=== PATIENT | male | born 1955 | race Caucasian/White ===

== ENCOUNTER → 2016-05-14 | Outpatient (CLI) | payer OTHER ==
[~2016-05-14] MED LIST: AMLO-114 PO; AMLO5TAB2 PO; ASPCH81X PO; ATEN-173 PO; CYAN500T13 PO; HYDR-5688 PO; HYDR12.55 PO; HYDR50TA3 PO; HYDROCHLOROTHIAZIDE PO; LISI-729 PO; LISI40TA PO; TRAM-10 PO
== END | disposition home or self-care (01) ==
LOC: C.CPL 10:28
PROVIDERS: ATTEND Orthopaedic Surgery
DX: M25.561 Pain in right knee (principal); R00.1 Bradycardia, unspecified

== ENCOUNTER 2016-05-19 10:22 | Day surgery (SDC) | payer OTHER ==
--- NOTE | 2016-05-18 16:36 | HISTORY & PHYSICAL EXAMINATION ---
DATE OF ADMISSION: 05/19/2016 HISTORY OF PRESENT ILLNESS: The patient is 6 foot 4, 250 pounds, BMI of 30.43. A 60-year-old white male with complaints of ongoing pain attributed to his right knee, presents with a torn medial meniscus and subchondral stress reaction for knee arthroscopy, possible partial medial meniscectomy, possible subchondroplasty pending findings at time of surgery. The patient has failed attempts at conservative management including previous corticosteroid injections, viscosupplementation, activity modification, and rest and presents today for arthroscopic evaluation. PAST MEDICAL HISTORY: Significant for hypertension. ALLERGIES: PHENERGAN. PAST SURGICAL HISTORY: Significant for cholecystectomy in 2010, left knee surgery in 1980, right shoulder tumor 2000, bone marrow donation 1996 and 2004. FAMILY HISTORY: Unremarkable and noncontributory. SOCIAL HISTORY: The patient relates no smoking, drinking alcohol approximately 6 drinks per week. No recreational drug use noted. PAST MEDICAL HISTORY: Otherwise unremarkable. See history of present illness for pertinent positives. PHYSICAL EXAMINATION: GENERAL: A very pleasant 60-year-old white male with the above findings noted. HEAD, EYES, EARS, NOSE, AND THROAT: Otherwise unremarkable, atraumatic, normocephalic. HEART: Regular at 72 beats per minute. No murmur is noted. LUNGS: Clear. No without rales, rhonchi, or wheezes noted. ABDOMEN: Soft, nontender, nondistended. Bowel sounds are present in all 4 quadrants. RECTAL: No rectal examination performed. MUSCULOSKELETAL EXAMINATION: Consistent with that of right knee pain, medial meniscal findings consistent with positive Ness and circumduction findings, medial joint line pain, tenderness with a torn medial meniscus and stress reaction. MRI is also consistent with the above findings with the subchondral area of bone marrow edema. PLAN: For arthroscopy, arthroscopic partial medial meniscectomy, possible subchondral subchondroplasty utilizing fluoroscopic guidance pending findings at time of surgery.
[~2016-05-19] VITALS: Ht 193 cm; Wt 113.6 kg
--- NOTE | 2016-05-19 10:14 | History & Physical Bridge Note ---
H&P Re-Evaluation Bridge Note: I have examined the patient, reviewed the History & Physical and in the interval since the performance of the History & Physical I have noted the following changes of clinical significance: No changes noted
[~2016-05-19 10:22] MED LIST changes: -AMLO5TAB2 PO; -ASPCH81X PO; +CEFAZOLIN 1000MG/55 ML D5W IV SCH; +CEFAZOLIN 2000 MG/60 ML D5W IV SCH; -HYDR-5688 PO; -HYDR12.55 PO; -HYDROCHLOROTHIAZIDE PO; +LACTATED RINGER'S 1000ML 1,000 ML IV SCH; -LISI-729 PO
[2016-05-19] MEDS ORDERED: PROPOFOL IV EMULSION 10 MG/ML 20 ML VIAL IV ONE (10:43)
[2016-05-19] MEDS ORDERED: ONDANSETRON INJ 2 MG/ML 2 ML VIAL ONE (10:43)
[2016-05-19] MEDS ORDERED: MIDAZOLAM HCL 1 MG/ML 2ML VIAL ONE (10:43)
[2016-05-19] MEDS ORDERED: FENTANYL CITRATE INJ 50 MCG/1 ML 2 ML VIAL ONE ×2 (10:43→12:50)
[2016-05-19] MEDS ORDERED: LIDOCAINE HCL 2% 2 ML VIAL (20MG/ML) ONE (10:43)
[2016-05-19 10:49] VITALS: BP 155/98; PULSE 58; TEMP 37; O2SAT 95; Ht 193 cm; Wt 113.6 kg
[2016-05-19] MEDS ORDERED: MoRPHine SULFATE 10 MG/ML CARP/VIAL IV PRN (11:15)
[2016-05-19] MEDS ORDERED: EpHEDrine SULFATE INJ 50 MG/ML AMP IV PRN (11:15)
[2016-05-19] MEDS ORDERED: ATROPINE SULFATE 0.1 MG/ML 5ML SYR IV PRN (11:15)
[2016-05-19] MEDS ORDERED: MEPERIDINE HCL 25 MG/ML CARP IV PRN (11:15)
[2016-05-19] MEDS ORDERED: FENTANYL CITRATE INJ 50 MCG/1 ML 2 ML VIAL IV PRN (11:15)
[2016-05-19] MEDS ORDERED: ONDANSETRON INJ 2 MG/ML 2 ML VIAL IV PRN ×2 (11:15→12:30)
[2016-05-19] MEDS ORDERED: BUPIVACAINE/EPINEPHRINE 0.5% MPF 1:200,000 30 ML VIAL ONE (12:03)
[2016-05-19] MEDS ORDERED: EpHEDrine SULFATE 50MG/5ML SYR ONE (12:19)
[2016-05-19] MEDS ORDERED: HYDR-5688 PO (12:22)
[2016-05-19] MEDS ORDERED: KETOROLAC TROMETHAMINE 15 MG/ML VIAL IV. PRN (12:30)
[2016-05-19] MEDS ORDERED: HYDROCODONE/ACETAMOPHEN 5/325MG TAB PO PRN ×2 (12:30)
[2016-05-19] MEDS ORDERED: GLYCOPYRROLATE INJ 0.2 MG/ML VIAL ONE (12:30)
[2016-05-19] MEDS ORDERED: MoRPHine SULFATE 4 MG/ML 1 ML CARP\\VIAL IV PRN (12:30)
--- NOTE | 2016-05-19 12:32 | Discharge Instructions ---
Discharge Instructions Date of Service May 19, 2016. Visit Reason for Visit: Right Knee Medical Meniscus Tear, Tibia/Fibula Str Discharge Discharge Diagnosis / Problem: Right Knee Medial Meniscus Tear; Subchondral Stress Fx Discharge Goals Goal(s): Decrease discomfort, Improve function Activity Recommendations Activity Limitations: per Instructions/Follow-up section Weightbearing Status: Right weightbearing (as tolerated) Anesthesia . Post Anesthesia Instructions: If you have had General Anesthesia or IV Sedation: * Do not drive today. * Resume driving when surgeon permits. * Do not make important decisions or sign legal documents today. * Call surgeon for: 1. Temperature elevations greater than 101 degrees F. 2. Uncontrollable pain. 3. Excessive bleeding. 4. Persistent nausea and vomiting. 5. Medication intolerance (nausea, vomiting or rash). * For nausea and vomiting use only clear liquids such as: tea, soda, bouillon until nausea subsides, then gradually increase diet as tolerated. * If you have any concerns or questions, call your surgeon's office. If physician is unavailable and it is an emergency, call 911 or go to the nearest emergency room. . Instructions / Follow-Up Instructions / Follow-Up ACTIVITY RECOMMENDATIONS: * You may walk on the leg with or without crutches as comfort permits. * Bending of the knee should start at once. * Do not shower for 48 hours following surgery. SPECIAL CARE INSTRUCTIONS: * You may cleanse the skin adjacent to the small wounds with soap and water at the time of the first dressing change. * The application of an ice bag to the front and sides of the knee will decrease swelling and discomfort for the first 48 hours. * The small incisions may be sore and develop bruising. This bruising does not require any special care. SPECIAL PRECAUTIONS: * If you experience unusual pain unrelieved by prescriptions, temperature elevation (100 degrees F. or above) or progressive swelling or bleeding, you should contact our office at for further evaluation. * You may have been prescribed pain medication. If you experience nausea and/or fine skin rash, discontinue this medication and contact our office at for an alternate medication. DRESSING: * Dressing should be comfortable and absorb any leakage of fluid and/or blood. * The dressing may become moist or bloodstained. * Dressing may be removed 48 hours after surgery and bandaids placed over the small surgical incisions. If can be removed sooner if it becomes very soiled or loose. * Bandaids may be used over next several days as needed and can be discontinued when there is not further drainage from the wounds. FOLLOW UP VISIT: If appointment is not already scheduled: Please call [facility] to make a follow-up appointment for your surgery at . Diet Recommendations Recommended Home Diet: resume previous diet Pending Studies Studies pending at discharge: no Medical Emergencies . Who to Call and When: Medical Emergencies: If at any time you feel your situation is an emergency, please call 911 immediately. . Non-Emergent Contact Non-Emergency issues call your: Surgeon Call Non-Emergent contact if: temperature is above 101.5, your pain is not controlled, your pain is worsening, wound has increased drainage, wound has increased redness . . "Provider Documentation" section prepared by Gen Abad. [place] Drug Monitoring Program Search Results: patient reviewed within database, no issues identified
--- NOTE | 2016-05-19 12:48 | [facility] Post Operative Brief Note ---
Immediate Operative Summary Operative Date May 19, 2016. Pre-Operative Diagnosis torn medial meniscus torn alteral meniscus stress reaction medial tibial plateau Post-Operative Diagnosis same Procedure(s) Performed Arthroscopy with partial medial and lateral menisctomy insertion bone substitute medial tibia under fluro Surgeon douglas Manager Mining Surgeon(s) none Estimated Blood Loss 5cc Findings tmm tlm Specimens none Complication(s) None Disposition Recovery Room / PACU
--- NOTE | 2016-05-19 12:57 | DIAGNOSTIC IMAGING REPORT ---
INTRAOPERATIVE RIGHT KNEE 2 VIEWS CLINICAL HISTORY: Right knee subchondral plasty COMPARISON STUDY: No previous studies for comparison. FINDINGS: 2 intraoperative fluoroscopic spot images are provided for interpretation. 20 seconds of fluoroscopic time was utilized. The second image reveals a metallic probe within or projected over the medial tibial epiphysis. There is minor irregularity of the proximal medial tibial metaphysis IMPRESSION: Intraoperative radiographs as described above Electronically signed by: Pelon Saxena M.D. 05/19/2016 12:55 PM Dictated Date/Time: 05/19/2016 12:54 PM
[2016-05-19] MEDS ORDERED: LISINOPRIL 40 MG TAB PO ONE (13:15)
--- NOTE | 2016-05-19 13:29 | Anesthesiology Progress Note ---
Anesthesia Post Op Note Date & Time May 19, 2016 at 13:28 Vital Signs Pain Intensity: 2 Vital Signs Past 12 Hours Date Time Temp Pulse Resp B/P Pulse Ox O2 Delivery O2 Flow Rate FiO2 05/19/16 13:20 76 16 147/95 96 Room Air 05/19/16 13:10 77 19 162/107 95 Room Air 05/19/16 13:00 76 18 169/101 100 Mask 10 05/19/16 12:50 73 16 161/104 100 Mask 10 05/19/16 12:48 36.5 79 16 158/114 100 Mask 10 05/19/16 10:49 37.0 58 20 155/98 95 Room Air Notes Mental Status: alert / awake / arousable, participated in evaluation Pt Amnestic to Procedure: Yes Nausea / Vomiting: adequately controlled Pain: adequately controlled Airway Patency, RR, SpO2: stable & adequate BP & HR: stable & adequate Hydration State: stable & adequate Anesthetic Complications: no major complications apparent
--- NOTE | 2016-05-19 13:36 | OPERATIVE REPORT ---
DATE OF OPERATION: 05/19/2016 PREOPERATIVE DIAGNOSES: Right knee torn medial meniscus, torn lateral meniscus, stress reaction medial tibia plateau. POSTOPERATIVE DIAGNOSES: Same. PROCEDURE: Arthroscopy, arthroscopic partial meniscectomy, arthroscopic partial lateral menisectomy arthroscopic and fluoroscopic-guided insertion of bone calcific substitute to medial tibia 2.5 mL under fluoroscopic guidance. SURGEON: Dr. Salcido. ELECTRICAL POWER STATION TECHNICIAN: None. ANESTHESIA: General. COMPLICATIONS: None. HISTORY OF PRESENT ILLNESS: The patient is a very pleasant 60-year-old white male who presents with the above complaints. He has been nonresponsive to conservative therapy. At time of arthroscopy above findings noted. DESCRIPTION OF PROCEDURE: After proper prepping and draping of the right lower extremity, arthroscopic examination involving the medial and lateral parapatellar portals revealed evidence of a complex tear of the posterior horn of the medial meniscus. Subsequently, a partial posterior medial meniscectomy was performed. The lateral meniscus was probed and also be evidence of a tear of the posterior horn of the lateral meniscus. The anterior and posterior cruciate ligaments were visualized and probed and noted to be intact. After performing a thorough partial posterior horn medial and partial posterior horn lateral meniscectomies articular cartilage the medial tibial plateau and femoral condyle, lateral tibial plateau and lateral femoral condyle were all evaluated. No full thickness lesions are noted. There is some grade 3 changes involving the medial tibial plateau. Subsequently, the stress reaction of the medial tibial plateau having been identified via MRI scan previously was injected with a 2.5 mL of calcific bone substitute for stress reaction. The patient tolerated the procedure well. Skin portals were closed with 4-0 nylon. Sterile compression dressing was placed. The patient was taken to the recovery room in stable condition. I attest to the content of the Intraoperative Record and any orders documented therein. Any exceptions are noted below. MTDD
[2016-05-19 13:52] VITALS: BP 158/99; PULSE 74; TEMP 36.7; O2SAT 95
[2016-05-19 14:10] VITALS: BP 143/94; PULSE 71; TEMP 36.7; O2SAT 95
[2016-05-19 14:30] VITALS: BP 145/94; PULSE 71; TEMP 36.7; O2SAT 95
== END 2016-05-19 14:50 | disposition home or self-care (01) ==
LOC: C.ACU 10:22
PROVIDERS: ATTEND Orthopaedic Surgery
DX: M23.231 Derangement of other medial meniscus due to old tear or injury, right knee (principal); M23.201 Derangement of unspecified lateral meniscus due to old tear or injury, left knee; I10 Essential (primary) hypertension; Z98.890 Other specified postprocedural states